=== PATIENT | male | born 1990 | race Caucasian/White ===

== ENCOUNTER 2019-03-11 20:24 | Emergency (ER) | payer BC ==
[2019-03-11] MEDS ORDERED: Sodium Chloride 0.9% 1,000 ML IV ONE (20:40)
[2019-03-11] MEDS ORDERED: Ketorolac 30 MG/ML SDV IVPUSH ONE (20:40)
[2019-03-11] MEDS ORDERED: Acetaminophen 500 MG Tab PO ONE (20:40)
[2019-03-11 21:18] LABS: CHLORIDE,CL 100 mmol/L (98-107); SODIUM,NA 136 mmol/L (136-148)
[2019-03-11] MEDS ORDERED: Doxycycline 100 MG Cap PO ONE (21:19)
--- NOTE | 2019-03-11 21:22 | EDM.PDOC ---
ED HPI GENERAL MEDICAL PROBLEM - General Chief Complaint: Fever Stated Complaint: FEVER Time Seen by Provider: 03/11/19 20:37 Source of Information: Reports: Patient History Limitations: Reports: No Limitations - History of Present Illness INITIAL COMMENTS - FREE TEXT/NARRATIVE: HISTORY AND PHYSICAL: History of present illness: Patient is a 28-year-old male who presents to the emergency room today with complaints of fever, generalized body aches, fatigue and cough since yesterday. Patient reports he has noticed several tick bites to his back and lower extremities. Has not noticed any associated rash or bull's-eye-like rash associated with it. Patient denies any headache, change in vision, syncope or near syncope. Denies any chest pain, back pain, or shortness of breath. Denies any abdominal pain, nausea, vomiting, diarrhea, constipation or dysuria. Has not noted any blood in urine or stool. Patient has been eating and drinking appropriately. Review of systems: As per history of present illness and below otherwise all systems reviewed and negative. Past medical history: As per history of present illness and as reviewed below otherwise noncontributory. Surgical history: As per history of present illness and as reviewed below otherwise noncontributory. Social history: See social history for further information Family history: As per history of present illness and as reviewed below otherwise noncontributory. Physical exam: General: Well developed and well nourished 28-year-old male. Alert and oriented. Nontoxic appearing and in no acute distress. HEENT: Atraumatic, normocephalic, pupils equal and reactive bilaterally, negative for conjunctival pallor or scleral icterus, mucous membranes moist, TMs normal bilaterally, throat clear, neck supple, nontender, trachea midline. No drooling or trismus noted. No meningeal signs. No hot potato voice noted. Lungs: Clear to auscultation, breath sounds equal bilaterally, chest nontender. Heart: S1S2, regular rate and rhythm without overt murmur Abdomen: Soft, nondistended, nontender. Negative for masses or hepatosplenomegaly. Negative for costovertebral tenderness. Pelvis: Stable nontender. Genitourinary: Deferred. Rectal: Deferred. Skin: Patient does have a small circular erythematous spot which he reports was a previous tick bite. Nonfluctuant and nontoxic appearing. Otherwise skin is intact, warm, dry. No lesions or rashes noted. Extremities: Atraumatic, moves all extremities per self without difficulty or deficits, negative for cords or calf pain. Neurovascular unremarkable. Neuro: Awake, alert, oriented. Cranial nerves II through XII unremarkable. Cerebellum unremarkable. Motor and sensory unremarkable throughout. Exam nonfocal. Notes: The lyme lab test is a send out; due to the patient's fever and recent tick bite exposure and will treat with doxycycline. Today's labs are normal. This information was shared with the patient along with the need for close follow- up. Supportive care measures were reviewed and discussed. Voices understanding and is agreeable to plan of care. Denies any further questions or concerns at this time. Diagnostics: CBC, CMP, Blood Culture x 2, Lyme Blot, Lactic Therapeutics: IV fluids, Toradol, Acetaminophen, Doxycycline Prescription: Doxycline BID x 2 weeks Impression: Fever Recent tick bite Plan: 1. Take the medications as prescribed. 2. Continue alternating Tylenol and ibuprofen for pain and fever management. Small frequent sips of fluids to prevent dehydration. 3. The Lyme Titer is a send out; we will not have results for 3-5 days. You are being treated prophylactically with the correct antibiotic. We will call you if this test does return positive. 4. Follow-up with your primary care provider as we discussed. Return to the ED as needed and as discussed. Definitive disposition and diagnosis as appropriate pending reevaluation and review of above. 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 [No Known Home Meds] 03/11/19 [History] Past Medical History HEENT History: Reports: Impaired Vision, Other (See Below) Other HEENT History: wears glasses Social & Family History - Family History Family Medical History: Noncontributory - Tobacco Use Smoking Status *Q: Never Smoker - Recreational Drug Use Recreational Drug Use: No ED ROS GENERAL - Review of Systems Review Of Systems: ROS reveals no pertinent complaints other than HPI. ED EXAM, GENERAL - Physical Exam Exam: See Below (See dictation) Course - Vital Signs Last Recorded V/S: Last Vital Signs Temp 103.5 F H 03/11/19 21:16 Pulse 105 H 03/11/19 20:24 Resp 18 03/11/19 20:24 BP 122/59 L 03/11/19 20:24 Pulse Ox 94 L 03/11/19 20:24 - Orders/Labs/Meds Orders: Active Orders 24 hr Category Date Time Status Chest 2V [CR] Stat Exams 03/11/19 20:40 Taken CULTURE BLOOD [BC] Stat Lab 03/11/19 20:40 Ordered CULTURE BLOOD [BC] Stat Lab 03/11/19 20:49 Received LYME, WESTERN BLOT, SERUM [REF] Stat Lab 03/11/19 20:45 Ordered Sodium Chloride 0.9% [Normal Saline] 1,000 ml Med 03/11/19 20:40 Active IV STAT Blood Culture x2 Reflex Set [OM.PC] Stat Oth 03/11/19 20:40 Ordered Medication Orders Sodium Chloride (Normal Saline) 1,000 mls @ 999 mls/hr IV STAT ONE Stop: 03/11/19 21:40 Last Admin: 03/11/19 20:48 Dose: 999 mls/hr Labs: Laboratory Tests 03/11/19 03/11/19 03/11/19 Range/Units 20:49 20:49 20:49 WBC 9.91 (4.0-11.0) K/uL RBC 4.30 L (4.50-5.90) M/uL Hgb 13.9 (13.0-17.0) g/dL Hct 40.7 (38.0-50.0) % MCV 94.7 (80.0-98.0) fL MCH 32.3 H (27.0-32.0) pg MCHC 34.2 (31.0-37.0) g/dL RDW Std Deviation 41.5 (28.0-62.0) fl RDW Coeff of Barney 12 (11.0-15.0) % Plt Count 228 (150-400) K/uL MPV 9.10 (7.40-12.00) fL Neut % (Auto) 82.9 H (48.0-80.0) % Lymph % (Auto) 10.3 L (16.0-40.0) % Rush % (Auto) 6.5 (0.0-15.0) % Eos % (Auto) 0.1 (0.0-7.0) % Baso % (Auto) 0.2 (0.0-1.5) % Neut # (Auto) 8.2 H (1.4-5.7) K/uL Lymph # (Auto) 1.0 (0.6-2.4) K/uL Rush # (Auto) 0.6 (0.0-0.8) K/uL Eos # (Auto) 0.0 (0.0-0.7) K/uL Baso # (Auto) 0.0 (0.0-0.1) K/uL Nucleated RBC % 0.0 /100WBC Nucleated RBCs # 0 K/uL Lactate 0.8 (0.20-2.00) mmol/L Sodium 136 (136-148) mmol/L Potassium 3.9 (3.5-5.1) mmol/L Chloride 100 (98-107) mmol/L Carbon Dioxide 25.2 (21.0-32.0) mmol/L BUN 14 (7.0-18.0) mg/dL Creatinine 1.3 (0.8-1.3) mg/dL Est Cr Clr Drug Dosing 74.98 mL/min Estimated GFR (MDRD) > 60.0 ml/min Glucose 125 H (74-106) mg/dL Calcium 8.6 (8.5-10.1) mg/dL Total Bilirubin 0.7 (0.2-1.0) mg/dL AST 15 (15-37) IU/L ALT 21 (14-63) IU/L Alkaline Phosphatase 85 (46-116) U/L Total Protein 7.4 (6.4-8.2) g/dL Albumin 3.9 (3.4-5.0) g/dL Globulin 3.5 (2.6-4.0) g/dL Albumin/Globulin Ratio 1.1 (0.9-1.6) Meds: Medications Generic Name Dose Route Start Last Admin Trade Name Freq PRN Reason Stop Dose Admin Sodium Chloride 1,000 mls @ 999 mls/hr 03/11/19 20:40 03/11/19 20:48 Normal Saline IV 03/11/19 21:40 999 mls/hr STAT ONE Administration Discontinued Medications Generic Name Dose Route Start Last Admin Trade Name Freq PRN Reason Stop Dose Admin Acetaminophen 1,000 mg 03/11/19 20:40 03/11/19 21:16 Tylenol Extra Strength PO 03/11/19 20:41 1,000 mg ONETIME ONE Administration Doxycycline Hyclate 100 mg 03/11/19 21:19 Vibramycin PO 03/11/19 21:20 ONETIME ONE Ketorolac Tromethamine 30 mg 03/11/19 20:40 03/11/19 21:15 Toradol IVPUSH 03/11/19 20:41 30 mg ONETIME ONE Administration Departure - Departure Time of Disposition: 21:27 Disposition: Home, Self-Care 01 Clinical Impression: Tick bite of back Qualifiers: Encounter type: initial encounter Qualified Code(s): S30.860A - Insect bite ( nonvenomous) of lower back and pelvis, initial encounter; W57.XXXA - Bitten or stung by nonvenomous insect and other nonvenomous arthropods, initial encounter Fever Qualifiers: Fever type: unspecified Qualified Code(s): R50.9 - Fever, unspecified - Discharge Information Instructions: Tick Bite Information, Adult, [id number] Referrals: PCP,None [Primary Care Provider] - Forms: ED Department Discharge Additional Instructions: The following information is given to patients seen in the emergency department who are being discharged to home. This information is to outline your options for follow-up care. We provide all patients seen in our emergency department with a follow-up referral. The need for follow-up, as well as the timing and circumstances, are variable depending upon the specifics of your emergency department visit. If you don't have a primary care physician on staff, we will provide you with a referral. We always advise you to contact your personal physician following an emergency department visit to inform them of the circumstance of the visit and for follow-up with them and/or the need for any referrals to a consulting specialist. The emergency department will also refer you to a specialist when appropriate. This referral assures that you have the opportunity for follow-up care with a specialist. All of these measure are taken in an effort to provide you with optimal care, which includes your follow-up. Under all circumstances we always encourage you to contact your private physician who remains a resource for coordinating your care. When calling for follow-up care, please make the office aware that this follow-up is from your recent emergency room visit. If for any reason you are refused follow-up, please contact the [facility] Emergency Department at and asked to speak to the emergency department charge nurse. [facility] [address] [place] [address] [address] 1. Take the medications as prescribed. 2. Continue alternating Tylenol and ibuprofen for pain and fever management. Small frequent sips of fluids to prevent dehydration. 3. The Lyme Titer is a send out; we will not have results for 3-5 days. You are being treated prophylactically with the correct antibiotic. We will call you if this test does return positive. 4. Follow-up with your primary care provider as we discussed. Return to the ED as needed and as discussed. - My Orders Last 24 Hours: My Active Orders 03/11/19 20:40 Chest 2V [CR] Stat CULTURE BLOOD [BC] Stat Sodium Chloride 0.9% [Normal Saline] 1,000 ml IV STAT Blood Culture x2 Reflex Set [OM.PC] Stat 03/11/19 20:45 LYME, WESTERN BLOT, SERUM [REF] Stat 03/11/19 20:49 CULTURE BLOOD [BC] Stat - Assessment/Plan Last 24 Hours: My Active Orders 03/11/19 20:40 Chest 2V [CR] Stat CULTURE BLOOD [BC] Stat Sodium Chloride 0.9% [Normal Saline] 1,000 ml IV STAT Blood Culture x2 Reflex Set [OM.PC] Stat 03/11/19 20:45 LYME, WESTERN BLOT, SERUM [REF] Stat 03/11/19 20:49 CULTURE BLOOD [BC] Stat
--- NOTE | 2019-03-11 21:46 | CR ---
Indication: Fever, cough Technique: Chest 2 views Comparison: None Findings: Cardiovascular and mediastinum: Heart size and vasculature are normal in caliber and appearance. Lungs and pleural spaces: Focal consolidative infiltrate posterior left lower lobe. No effusion. No pneumothorax. Bones and soft tissues: No significant findings. Impression: Left lower lobe infiltrate. Dictated by Gerardo Dhaliwal MD @ Mar 11 2019 9:45PM Signed by Dr. Gerardo Dhaliwal @ Mar 11 2019 9:46PM
== END 2019-03-11 22:08 | disposition home or self-care (01) ==
LOC: MW.ED 20:24
DX: S30.860A Insect bite (nonvenomous) of lower back and pelvis, initial encounter (principal); W57.XXXA Bitten or stung by nonvenomous insect and other nonvenomous arthropods, initial encounter
CPT/HCPCS: 36415; 71046; 80053; 83605; 85025; 86617; 87040; 96361; 96374; 99283; A9270; J1885; J7040

== ENCOUNTER 2021-11-01 19:16 | Emergency (ER) | payer BC, OTHER ==
[2021-11-01] MEDS ORDERED: Lidocaine 1% with EPINEPHrine 1:100,000 20 ML MDV INJECT ONE (19:37)
[2021-11-01] MEDS ORDERED: Lidocaine 1% 10 ML MDV INJECT ONE (19:37)
[2021-11-01] MEDS ORDERED: Diphtheria,Pertussis(Acell),Tetanus Vaccine 0.5 ML Syringe IM ONE (19:38)
[2021-11-01] MEDS ORDERED: LIDOCAINE 1% ONE (19:47)
[2021-11-01] MEDS ORDERED: Lidocaine 1% with EPINEPHrine 1:100,000 10 ML MDV INJECT ONE (19:51)
[2021-11-01] MEDS ORDERED: LIDOCAINE 1% INJECT ONE (20:01)
== END 2021-11-01 20:42 | disposition home or self-care (01) ==
LOC: MW.ED 19:16
DX: S61.012A Laceration without foreign body of left thumb without damage to nail, initial encounter (principal); Z23 Encounter for immunization; W26.8XXA Contact with other sharp object(s), not elsewhere classified, initial encounter
CPT/HCPCS: 12002; 90471; 90715; 99282-25